=== PATIENT | male | born 1980 | race Caucasian/White ===

== ENCOUNTER 2024-07-31 11:36 | Emergency (ER) | payer OTHER ==
[~2024-07-31] VITALS: Ht 195.6 cm; Wt 94.2 kg
[~2024-07-31 11:36] MED LIST: H; Heparin SUBQ; MORP10SU IV; NICO14DI3 TD; PERC5TAB8 OR
[2024-07-31] MEDS ORDERED: LAMO200T54 PO (11:57)
[2024-07-31 12:17] LABS: BASO # 0.1 10^3/uL (0.0-0.2); BASO % 0.7 % (0.0-1.0); EOS # 0.2 10^3/uL (0.0-0.5); EOS % 3.1 % (0.0-3.0); HEMATOCRIT 42.3 % (42.0-52.0); HEMOGLOBIN 14.5 g/dl (13.5-17.5); LYMPH # 2.1 10^3/uL (1.5-5.0); LYMPH % 29.5 % (24.0-44.0); MEAN CORPUSCULAR HEMOGLOBIN 31.5 pg (27.0-33.0); MEAN CORPUSCULAR HGB CONC 34.3 g/dl (32.0-36.5); MEAN CORPUSCULAR VOLUME 91.8 fl (80.0-96.0); MONO # 0.4 10^3/uL (0.0-0.8); MONO % 6.1 % (2.0-8.0); NEUTROPHILS # 4.3 10^3/uL (1.5-8.5); NEUTROPHILS % 60.3 % (36.0-66.0); PLATELET COUNT, AUTOMATED 196 10^3/uL (150-450); RED BLOOD COUNT 4.61 10^6/uL (4.30-6.10); WHITE BLOOD COUNT 7.2 10^3/uL (4.0-10.0)
[2024-07-31 12:36] LABS: D-DIMER QUANT < 0.27 ug/mL (<0.5); INR 0.91; PARTIAL THROMBOPLASTIN TIME 27.5 SECONDS (24.8-34.2); PROTHROMBIN TIME 12.6 SECONDS (12.5-14.5)
[2024-07-31 12:48] LABS: LIPASE 30 U/L (12-53)
[2024-07-31 12:50] LABS: ALBUMIN 3.9 G/DL (3.2-5.2); ALKALINE PHOSPHATASE 69 U/L (40-129); ALT/SGPT 24 U/L (7.0-40); AST/SGOT 25 U/L (<34); BILIRUBIN,DIRECT 0.1 MG/DL (<0.4); BILIRUBIN,TOTAL 0.3 MG/DL (0.3-1.2); BLOOD UREA NITROGEN 10 MG/DL (9-23); CALCIUM LEVEL 8.7 MG/DL (8.5-10.1); CARBON DIOXIDE LEVEL 23 MMOL/L (20-31); CHLORIDE LEVEL 104 MMOL/L (98-107); CK-MB VALUE MASS < 1.0 NG/ML (<3.6); CPK CREATINE PHOSPHOKINASE 167 U/L (46-171); CREATININE FOR GFR 0.73 MG/DL (0.70-1.30); GLOMERULAR FILTRATION RATE > 60.0 (>60); GLUCOSE, FASTING 78 MG/DL (60-100); MB/CK RELATIVE INDEX 0.59 (< OR =4); SODIUM LEVEL 141 MMOL/L (136-145); TOTAL PROTEIN 7.1 G/DL (5.7-8.2)
[2024-07-31 12:51] LABS: THYROID STIMULATING HORMONE 0.424 uIU/ML (0.55-4.78)
[2024-07-31] MEDS ORDERED: ISOVUE-370 76% 100ML VIAL As Ordered ONE (13:25)
[2024-07-31 13:39] LABS: CK-MB VALUE MASS < 1.0 NG/ML (<3.6)
[2024-07-31 13:40] LABS: CPK CREATINE PHOSPHOKINASE 154 U/L (46-171); MB/CK RELATIVE INDEX 0.64 (< OR =4)
[2024-07-31] MEDS ORDERED: AMOX875T2 PO (14:32)
[2024-07-31] MEDS ORDERED: AUGMENTIN 875 MG TAB PO ONE (14:35)
[2024-07-31 15:00] VITALS: BP 140/80
[2024-07-31 15:06] VITALS: TEMP 97.2; O2SAT 96
== END 2024-07-31 15:20 | disposition home or self-care (01) ==
LOC: M ED 11:36
DX: R07.9 Chest pain, unspecified (principal); J18.8 Other pneumonia, unspecified organism; R91.8 Other nonspecific abnormal finding of lung field; F17.290 Nicotine dependence, other tobacco product, uncomplicated; F10.10 Alcohol abuse, uncomplicated; Z91.013 Allergy to seafood; Z79.2 Long term (current) use of antibiotics; Z79.899 Other long term (current) drug therapy
CPT/HCPCS: 36415; 71045; 71275; 80048; 80076; 82550; 82553; 83690; 84443; 84484; 85025; 85379; 85610; 85730; 87486; 87581; 87633; 87798; 93005; 93041; 94760; 99285; Q9967